=== PATIENT | female | born 1970 | race Caucasian/White ===

== ENCOUNTER → 2019-06-14 | Emergency (ER) | payer BC ==
[~2019-06-14] VITALS: Ht 162.6 cm; Wt 59.0 kg
[2019-06-14 06:47] VITALS: BP 113/76
--- NOTE | 2019-06-14 06:48 | NUR ---
PT BIBSELF C/O URI SYMPTOMS X1 WEEK. +NONPRODUCTIVE COUGH, +SORE THROAT +BILATERAL EARACHE. +CHEST DISCOMFORT WHILE COUGHING. -FEVER. PT AAOX4, VSS, BREATHING EVEN AND UNLABORED ON RA W/ NAD NOTED. PT CONNECTED TO THE MONITOR AND POX
--- NOTE | 2019-06-14 07:31 | NUR ---
[employer]AG[employer] AT BEDSIDE
== END | disposition home or self-care (01) ==
LOC: ER 06:48
DX: R05 Cough (principal); R50.9 Fever, unspecified
CPT/HCPCS: 71045-TC